=== PATIENT | male | born 1960 | race Caucasian/White ===

== ENCOUNTER 2019-04-05 21:41 | Outpatient (REF) | payer OTHER, SELFPAY ==
[2019-04-05 22:25] LABS: Anion Gap 10.5 mmol/L (3-11); BUN 13 mg/dL (7-18); CO2 25.5 mmol/L (21.0-32.0); CREATININE 0.91 mg/dL (0.70-1.30); Calcium 8.5 mg/dL (8.5-10.1); Calculated LDL 70 mg/dL; Chloride 105 mmol/L (98-107); Cholesterol 156 mg/dL (50-200); Glucose 92 mg/dL (70-100); HDL Cholesterol 39 mg/dL (40-60); Potassium 4.3 mmol/L (3.5-5.1); Sodium 141 mmol/L (136-145); Triglyceride 239 mg/dL (30-150)
== END 2019-04-05 22:01 ==
LOC: NCHCN 21:41
PROVIDERS: PCP Internal Medicine; Visit Provider Internal Medicine
DX: I10 Essential (primary) hypertension (principal); Z13.220 Encounter for screening for lipoid disorders
CPT/HCPCS: 80048; 80061; 83721

== ENCOUNTER 2022-12-29 18:20 | Outpatient (REF) | payer OTHER, SELFPAY ==
[2022-12-29 21:51] LABS: Anion Gap 12.4 mmol/L (3-11); BUN 14 mg/dL (7-18); CO2 23.6 mmol/L (21.0-32.0); CREATININE 0.9 mg/dL (0.70-1.30); Calcium 8.7 mg/dL (8.5-10.1); Calculated LDL 87 mg/dL (<100); Chloride 104 mmol/L (98-107); Cholesterol 151 mg/dL (<200); Estimated GFR 95.37 (mL/min/1.73m2); Glucose 90 mg/dL (74-106); HDL Cholesterol 49 mg/dL (40-60); Sodium 140 mmol/L (136-145); Triglyceride 78 mg/dL (<150)
[2022-12-30 19:38] LABS: PSA, Screening 1.5 ng/mL (<=4.5)
[2022-12-31 09:18] LABS: Hepatitis C Ab w Rflx HCV PCR Negative (Negative)
[2022-12-31 09:27] LABS: HIV-1/2 Ag & Ab Screen Negative (Negative)
== END 2022-12-29 18:21 | disposition home or self-care (01) ==
LOC: NCHCN 18:20
PROVIDERS: PCP Internal Medicine; Visit Provider Nurse Practitioner Family
DX: Z11.4 Encounter for screening for human immunodeficiency virus [HIV] (principal); Z11.59 Encounter for screening for other viral diseases; Z12.5 Encounter for screening for malignant neoplasm of prostate; I10 Essential (primary) hypertension
CPT/HCPCS: 80048; 80061; 84153; 86803; 87389

== ENCOUNTER 2023-11-08 12:23 | Outpatient (REF) | payer OTHER, SELFPAY ==
--- NOTE | 2023-11-08 08:55 | SKI_PTH ---
PATIENT: Alfonzo Ely LOC: [facility] U#:[id number] AGE/SX: 63/M ROOM: RE11/08/[address]: Cira Wells : 1960 BED: DIS: 11/08/2023 SPEC #: [id number] RECD: 11/08/23 17:33 STATUS: SYED [place] #: [id number] REX: 11/08/23 08:[address]: Cira Wells DEPT: Surgical Specimen RECD BY: Colette Arnold ENTERED: 11/08/23 17:33 SP TYPE: JOSE MENDOZA DR: Shai Carr Tissues: 1 - SKIN BIOPSY(SHAVE/PUNCH) Procedures: SKIN LEVEL 4 Comments: [id number]
[2023-11-08 15:33] LABS: ALT 23 U/L (16-63); AST 30 U/L (15-37); Albumin 3.6 g/dL (3.4-5.0); Alkaline Phosphatase 74 U/L (46-116); Anion Gap 12.2 mmol/L (3-11); BUN 12 mg/dL (7-18); Bilirubin, Total 0.6 mg/dL (0.2-1.0); CO2 22.8 mmol/L (21.0-32.0); CREATININE 0.9 mg/dL (0.70-1.30); Calcium 8.9 mg/dL (8.5-10.1); Calculated LDL 93 mg/dL (<100); Chloride 109 mmol/L (98-107); Cholesterol 153 mg/dL (<200); Estimated GFR 94.78 (mL/min/1.73m2); Glucose 94 mg/dL (74-106); HDL Cholesterol 49 mg/dL (40-60); Potassium 4.6 mmol/L (3.5-5.1); Sodium 144 mmol/L (136-145); Total Protein 7.6 g/dL (6.4-8.2); Triglyceride 57 mg/dL (<150)
== END 2023-11-08 12:24 | disposition home or self-care (01) ==
LOC: NCHCN 12:23
PROVIDERS: PCP Internal Medicine; Visit Provider Nurse Practitioner Family
DX: Z00.00 Encounter for general adult medical examination without abnormal findings (principal)
CPT/HCPCS: 80053; 80061; 88305

== ENCOUNTER 2024-11-19 12:15 | Outpatient (REF) | payer MEDICARE, SELFPAY ==
[2024-11-19 16:05] LABS: ALT 30 U/L (16-63); AST 36 U/L (15-37); Albumin 3.7 g/dL (3.4-5.0); Alkaline Phosphatase 82 U/L (46-116); Anion Gap 8.8 mmol/L (3-11); BUN 12 mg/dL (7-18); Bilirubin, Total 0.6 mg/dL (0.2-1.0); CO2 26.2 mmol/L (21.0-32.0); CREATININE 0.9 mg/dL (0.70-1.30); Calcium 9.2 mg/dL (8.5-10.1); Calculated LDL 91 mg/dL (<100); Chloride 108 mmol/L (98-107); Cholesterol 160 mg/dL (<200); Estimated GFR 94.19 (mL/min/1.73m2); Glucose 95 mg/dL (74-106); HDL Cholesterol 52 mg/dL (>or=40); Potassium 4.2 mmol/L (3.5-5.1); Sodium 143 mmol/L (136-145); Total Protein 7.8 g/dL (6.4-8.2); Triglyceride 86 mg/dL (<150)
[2024-11-19 17:07] LABS: COMMENT (LAB VIEW ONLY) 65.59 mg/dL; Microalb ug/mg Crea 6.3 ug/mg Cr
[2024-11-19 22:09] LABS: PSA, Screening 1.5 ng/mL (<=4.5)
== END 2024-11-19 12:16 | disposition home or self-care (01) ==
LOC: NCHCN 12:15
PROVIDERS: PCP Internal Medicine; Visit Provider Nurse Practitioner Family
DX: I10 Essential (primary) hypertension (principal); Z12.5 Encounter for screening for malignant neoplasm of prostate
CPT/HCPCS: 80053; 80061; 84153; 82043; 82570